=== PATIENT | female | born 1995 | race Asian ===

== ENCOUNTER 2018-06-13 09:08 | Emergency (ER) | payer OTHER ==
--- NOTE | 2018-06-13 11:17 | ED ---
Lower Extremity - HPI Summary HPI Summary: Patient presented with right ankle pain, swelling and bruising since an injury yesterday. She reports she was walking through a parking lot when her foot "landed funny" and she twisted her ankle - as a result, she fell and landed on her Lt knee - has an abrasion here which she cleaned and covered with a bandaid. Tetanus is UTD and no other injuries to report. She has been bearing weight however it is painful. She's been using a step stool as a walker to avoid weightbearing. Denies numbness, tingling, weakness. She is currently applying ice and elevating which helps. At home she tried topical lidocaine cream with minimal relief. No previous injury to this ankle. Denies possibility of as she is not sexually active. - History of Current Complaint Chief Complaint: EDExtremityLower Stated Complaint: RT ANKLE INJURY Time Seen by Provider: 06/13/18 10:36 Hx Obtained From: Patient, Family/Medical Staff Coordinator - male entry specialist Pain Intensity: 7 - Allergies/Home Medications Allergies/Adverse Reactions: Allergies Allergy/AdvReac Type Severity Reaction Status Date / Time No Known Allergies Allergy Verified 06/13/18 09:18 PMH/Surg Hx/FS Hx/Imm Hx Previously Healthy: Yes Endocrine/Hematology History: Denies: Hx Anticoagulant Therapy, Hx Blood Disorders Neurological History: Denies: Hx Headaches Infectious Disease History: No Infectious Disease History: Denies: Traveled Outside the [place] in Last 30 Days - Social History Alcohol Use: Rare Hx Substance Use: No Substance Use Type: Reports: None Hx Tobacco Use: No Smoking Status (MU): Never Smoked Tobacco Review of Systems Positive: no symptoms reported Positive: Arthralgia, Decreased ROM, Edema Positive: Bruising Neurological: Negative Psychological: Normal All Other Systems Reviewed And Are Negative: Yes Physical Exam Triage Information Reviewed: Yes Vital Signs On Initial Exam: Initial Vitals Temp Pulse Resp BP Pulse Ox 98 F 78 16 107/66 96 06/13/18 09:19 06/13/18 09:19 06/13/18 09:19 06/13/18 09:19 06/13/18 09:19 Vital Signs Reviewed: Yes Appearance: Positive: Well-Appearing, No Pain Distress - at rest - reports pain w/ ROM ankle, Well-Nourished Skin: Positive: Warm, Skin Color Reflects Adequate Perfusion, Dry - ecchymosis w / edema over Rt lateral malleolous and dorsal/lateral foot - these areas are TTP - no skin breakdown and no gross deformity Head/Face: Positive: Normal Head/Face Inspection Eyes: Positive: EOMI ENT: Positive: Hearing grossly normal Respiratory/Lung Sounds: Positive: Breath Sounds Present Cardiovascular: Positive: Pulses are Symmetrical in both Upper and Lower Extremities Musculoskeletal: Positive: Strength/ROM Intact, Pain @ - as above - pt also reports pain w/ all ROM of ankles - no pain w/ moving toes or knee Neurological: Positive: Normal, Sensory/Motor Intact, Alert, Oriented to Person Place, Time, CN Intact II-III Psychiatric: Positive: Normal Diagnostics - Vital Signs Vital Signs Temp Pulse Resp BP Pulse Ox 06/13/18 09:19 98 F 78 16 107/66 96 - Laboratory Lab Statement: Any lab studies that have been ordered have been reviewed, and results considered in the medical decision making process. Lower Extremity Course/Dx - Course Course Of Treatment: XR: base of 5th MT fx, non-displaced/. Ankle w/o acute findings. Cam boot and crutches provided - Diagnoses Provider Diagnoses: Nondisplaced fracture of fifth right metatarsal bone, Right ankle sprain Discharge - Sign-Out/Discharge Documenting (check all that apply): Patient Departure - Discharge Plan Condition: Stable Disposition: HOME Patient Education Materials: Crutch Instructions (ED), Foot Fracture in Adults (ED) Referrals: Danny Torrez MD [Medical Doctor] - Additional Instructions: REST, ICE, ELEVATE AND BOOT CLEAN, DRY AND IN PLACE UNTIL SEEN BY ORTHOPEDICS. Call orthopedics tomorrow to schedule follow-up. You may take ibuprofen alternating with acetaminophen as needed for pain. You may remove boot to ice and elevate as well as to shower as long as you do not bear weight on your foot. *If you develop numbness, tingling, weakness, swelling or skin discoloration, remove boot and elevate arm for 20 minutes. If symptoms persist, return to ED - Billing Disposition and Condition Condition: STABLE Disposition: Home
--- NOTE | 2018-06-13 11:28 | RAD ---
INDICATION: Lateral right ankle pain one day after an injury COMPARISON: None. TECHNIQUE: 3 views of the right ankle and 3 views of the right foot were obtained. FINDINGS: The bones of the ankle joint are intact and appropriately aligned. There is no asymmetric widening of the ankle mortise. There is a medullary lucent line oriented horizontally at the base of the right fifth metatarsal. Remaining visualized bones of the right foot are intact and appropriately aligned. IMPRESSION: NONDISPLACED FRACTURE AT THE BASE OF THE RIGHT FIFTH METATARSAL.
[2018-06-13 12:47] VITALS: BP 115/63
== END 2018-06-13 12:31 | disposition home or self-care (01) ==
LOC: ED 09:08